=== PATIENT | female | born 1975 | race Caucasian/White ===

== ENCOUNTER → 2016-03-26 16:26 | Outpatient (CLI) | payer MEDICAID ==
[2015-03-27 18:10] VITALS: BMI 35.0
[~2016-03-26 16:26] MED LIST: CIPRO500 MG PO; FLAGYL500 MG PO; HYDROCHLOROTHIA25 MG PO; LISINOPRIL5 MG PO; NEURONTIN 300300 MG PO; NICODERM C1 PATCH .3 TRANSDERM; TYLENOL W/CODEI1 TAB PO; XANAX1 MG PO; ZOFRAN ODT4 MG/UDTAB PO
== END | disposition home or self-care (01) ==
LOC: D.MAMMO 10:00
DX: Z12.31 Encounter for screening mammogram for malignant neoplasm of breast (principal)

== ENCOUNTER → 2016-04-15 17:11 | Outpatient (CLI) | payer MEDICAID ==
[2015-03-27 18:10] VITALS: BMI 35.0
== END | disposition home or self-care (01) ==
LOC: D.MAMMO 08:30
DX: R92.8 Other abnormal and inconclusive findings on diagnostic imaging of breast (principal)